=== PATIENT | female | born 1965 | race Two or more races ===

== ENCOUNTER 2020-06-09 16:46 | Emergency (ER) | payer OTHER ==
[~2020-06-09] VITALS: Ht 162.6 cm; Wt 78.3 kg
[2020-06-09] MEDS ORDERED: METO50TA7 PO (16:58)
[2020-06-09] MEDS ORDERED: MELO15TA28 PO (16:58)
[2020-06-09] MEDS ORDERED: HYDR25TAB PO (16:58)
[2020-06-09] MEDS ORDERED: COMBIVENT RESPIMAT 100-20MCG INHALER 4GM INH STA (17:50)
[2020-06-09 18:19] LABS: BASO # 0.1 10^3/uL (0.0-0.2); BASO % 0.8 % (0.0-1.0); EOS # 0.2 10^3/uL (0.0-0.5); EOS % 3.2 % (0.0-3.0); HEMATOCRIT 46.2 % (36.0-47.0); HEMOGLOBIN 15.2 g/dl (12.0-15.5); LYMPH % 12.9 % (24.0-44.0); MEAN CORPUSCULAR HEMOGLOBIN 31.1 pg (27.0-33.0); MEAN CORPUSCULAR HGB CONC 32.9 g/dl (32.0-36.5); MEAN CORPUSCULAR VOLUME 94.5 fl (80.0-96.0); MONO # 0.9 10^3/uL (0.0-0.8); MONO % 12.5 % (0.0-5.0); NEUTROPHILS # 5.3 10^3/uL (1.5-8.5); NEUTROPHILS % 70.1 % (36.0-66.0); PLATELET COUNT, AUTOMATED 220 10^3/uL (150-450); RED BLOOD COUNT 4.89 10^6/uL (4.00-5.40); WHITE BLOOD COUNT 7.5 10^3/uL (4.0-10.0)
[2020-06-09 18:53] LABS: ALBUMIN 3.9 GM/DL (3.2-5.2); ALT/SGPT 22 U/L (12-78); BILIRUBIN,DIRECT < 0.1 MG/DL (0.0-0.2); BILIRUBIN,TOTAL 0.4 MG/DL (0.2-1.0); BLOOD UREA NITROGEN 8 MG/DL (7-18); CALCIUM LEVEL 9.5 MG/DL (8.5-10.1); CARBON DIOXIDE LEVEL 30 MEQ/L (21-32); CHLORIDE LEVEL 106 MEQ/L (98-107); CK-MB VALUE MASS 1.8 NG/ML (<3.6); CPK CREATINE PHOSPHOKINASE 98 U/L (26-192); GLOMERULAR FILTRATION RATE > 60.0 (>51); GLUCOSE, FASTING 116 MG/DL (70-100); MB/CK RELATIVE INDEX 1.84 (< OR =4); NT-PRO BNP 187 PG/ML (<125); POTASSIUM SERUM 3.6 MEQ/L (3.5-5.1); SODIUM LEVEL 142 MEQ/L (136-145); TOTAL PROTEIN 7.3 GM/DL (6.4-8.2); TROPONIN I < 0.02 NG/ML (< 0.10)
[2020-06-09 19:16] VITALS: O2SAT 95
--- NOTE | 2020-06-09 19:20 | REP ---
INDICATION: DYSPNEA/COUGH. COMPARISON: None. TECHNIQUE: Single AP sitting view. FINDINGS: Monitoring electrodes are seen. The lungs are well inflated and clear. Oxygen delivery tubing is noted. Pleural angles are sharp. Heart size is normal. Pulmonary vasculature is not increased. No significant bony abnormality. IMPRESSION: Negative portable chest x-ray. <Electronically signed by Jabari Fan > 06/09/20 [id number]
[2020-06-09] MEDS ORDERED: COMBAER6 INH (19:44)
[2020-06-09] MEDS ORDERED: DOXY100C37 PO (19:44)
[2020-06-09 19:45] VITALS: BP 134/80
--- NOTE | 2020-06-10 10:04 | ECGEPIP ---
[facility] - ED Test Date: 2020-06-09 Pat Name: SONIA JOHNSON Department: Room: - Gender: Female Medical Territory Manager: [email or web address] : 1965 Requested By: TODD Gloria PA-C Order Number: [id number] Reading MD: Steff Whiting Measurements Intervals [place] Rate: 90 P: 28 MD: 140 QRS: 34 QRSD: 98 T: 29 QT: 335 QTc: 412 Interpretive Statements SINUS RHYTHM No prior Electronically Signed on 06-10-2020 10:04:11 EST by Steff Whiting
== END 2020-06-09 20:02 | disposition home or self-care (01) ==
LOC: M ED 16:46
DX: J20.9 Acute bronchitis, unspecified (principal); I10 Essential (primary) hypertension; Z20.828 Contact with and (suspected) exposure to other viral communicable diseases; F17.200 Nicotine dependence, unspecified, uncomplicated; Z79.51 Long term (current) use of inhaled steroids; Z79.899 Other long term (current) drug therapy
CPT/HCPCS: 36415; 71045; 80048; 80076; 82550; 82553; 83605; 83880; 85025; 87040; 93005; 93041; 94640; 94760; 99285; U0002